=== PATIENT | male | born 1990 | race African-American/Black ===

== ENCOUNTER 2017-06-21 14:56 | Emergency (ER) | payer BC, OTHER ==
[~2017-06-21] VITALS: Ht 177.8 cm; Wt 99.8 kg
[2017-06-21 15:03] VITALS: BP 121/77
[2017-06-21 15:46] LABS: URINE BILIRUBIN NEGATIVE (Negative); URINE BLOOD NEGATIVE (Negative); URINE COLOR YELLOW; URINE GLUCOSE-RANDOM* NEGATIVE (Negative); URINE KETONES NEGATIVE (Negative); URINE NITRITE NEGATIVE (Negative); URINE PROTEIN (DIPSTICK) NEGATIVE (Negative); URINE SPECIFIC GRAVITY 1.015 (1.003-1.035); URINE UROBILINOGEN 0.2 E.U./dl (0.2-1.0)
[2017-06-21 16:12] LABS: BACTERIA 1-9 Few /HPF (None Seen); CASTS None Seen /LPF (None Seen); CRYSTALS None Seen /LPF (None Seen); SQUAMOUS 0-3 Few /LPF (0-3); URINE RBC 0-2 Rare /HPF (0-2)
== END 2017-06-21 15:51 | disposition home or self-care (01) ==
LOC: ER 14:56
PROVIDERS: Physician Assistant
DX: Z11.3 Encounter for screening for infections with a predominantly sexual mode of transmission (principal); R30.0 Dysuria

== ENCOUNTER 2018-03-28 19:41 | Emergency (ER) | payer BC, OTHER ==
[~2018-03-28] VITALS: Ht 177.8 cm; Wt 101.2 kg
[2018-03-28] MEDS ORDERED: ERYTHROMYCIN E3.5 G3 OPHTHALMIC (20:26)
[2018-03-28 20:33] VITALS: BP 136/86
== END 2018-03-28 20:34 | disposition home or self-care (01) ==
LOC: ER 19:41
DX: H10.9 Unspecified conjunctivitis (principal); J45.909 Unspecified asthma, uncomplicated

== ENCOUNTER 2018-10-31 07:56 | Emergency (ER) | payer BC, OTHER ==
[~2018-10-31] VITALS: Ht 177.8 cm; Wt 104.3 kg
[~2018-10-31 07:56] MED LIST: ERYTHROMYCIN E3.5 G3 OPHTHALMIC
[2018-10-31 08:58] VITALS: BP 112/63
[2018-10-31] MEDS ORDERED: NAPROSYN500 MG PO (09:24)
[2018-10-31] MEDS ORDERED: TRAMADOL 50 MG50 MG PO (09:24)
== END 2018-10-31 09:54 | disposition home or self-care (01) ==
LOC: ER 07:56
DX: M72.2 Plantar fascial fibromatosis (principal); M21.42 Flat foot [pes planus] (acquired), left foot; M21.41 Flat foot [pes planus] (acquired), right foot; J45.909 Unspecified asthma, uncomplicated

== ENCOUNTER 2019-09-03 18:29 | Emergency (ER) | payer BC, OTHER ==
[~2019-09-03] VITALS: Ht 177.8 cm; Wt 102.1 kg
[~2019-09-03 18:29] MED LIST changes: +NAPROSYN500 MG PO; +TRAMADOL 50 MG50 MG PO
[2019-09-03 20:38] VITALS: BP 130/91
== END 2019-09-03 20:22 | disposition home or self-care (01) ==
LOC: ER 18:29
DX: S61.213A Laceration without foreign body of left middle finger without damage to nail, initial encounter (principal); S61.215A Laceration without foreign body of left ring finger without damage to nail, initial encounter; J45.909 Unspecified asthma, uncomplicated; W26.8XXA Contact with other sharp object(s), not elsewhere classified, initial encounter; Y93.89 Activity, other specified; Y92.89 Other specified places as the place of occurrence of the external cause; Y99.8 Other external cause status

== ENCOUNTER 2019-09-12 18:45 | Emergency (ER) | payer BC, OTHER ==
[~2019-09-12] VITALS: Ht 177.8 cm; Wt 104.3 kg
[2019-09-12 18:46] VITALS: BP 138/85
== END 2019-09-12 19:15 | disposition home or self-care (01) ==
LOC: ER 18:45
DX: Z48.02 Encounter for removal of sutures (principal); J45.909 Unspecified asthma, uncomplicated

== ENCOUNTER 2019-10-07 14:48 | Emergency (ER) | payer BC, OTHER ==
[~2019-10-07] VITALS: Ht 177.8 cm; Wt 104.3 kg
[2019-10-07 15:13] LABS: URINE BILIRUBIN NEGATIVE (Negative); URINE BLOOD TRACE (Negative); URINE CLARITY CLEAR; URINE COLOR YELLOW; URINE GLUCOSE-RANDOM* NEGATIVE (Negative); URINE KETONES NEGATIVE (Negative); URINE NITRITE-REFLEX NEGATIVE (Negative); URINE PROTEIN (DIPSTICK) NEGATIVE (Negative); URINE UROBILINOGEN 0.2 E.U./dl (0.2-1.0)
[2019-10-07 15:14] LABS: URINE LEUKOCYTES-REFLEX 2+ (Negative)
[2019-10-07 15:36] LABS: URINE WBC-REFLEX >25 Many /HPF (0-5)
[2019-10-07 15:37] LABS: CASTS None Seen /LPF (None Seen); CRYSTALS None Seen /LPF (None Seen); SQUAMOUS None Seen /LPF (0-3); URINE RBC 0-2 Rare /HPF (0-2)
[2019-10-07 15:38] LABS: BACTERIA-REFLEX 1-9 Few /HPF (None Seen); MUCUS 0-3 Light strn/LPF (None Seen)
[2019-10-07] MEDS ORDERED: KEFLEX500 M1 PO (16:16)
[2019-10-07 16:24] VITALS: BP 126/70
== END 2019-10-07 16:24 | disposition home or self-care (01) ==
LOC: ER 14:48
PROVIDERS: Emergency Medicine
DX: N34.2 Other urethritis (principal); J45.909 Unspecified asthma, uncomplicated